=== PATIENT | female | born 1995 | race Caucasian/White ===

== ENCOUNTER → 2020-07-16 | Outpatient (CLI) | payer BC ==
[~2020-07-16] MED LIST: BACTRIM DS TAB1 EACH PO; IBUPROFEN800 MG PO; KEFLEX CAP 500500 MG PO
== END ==
LOC: KOH-I 11:18
DX: M79.672 Pain in left foot (principal); S92.512A Displaced fracture of proximal phalanx of left lesser toe(s), initial encounter for closed fracture; X58.XXXA Exposure to other specified factors, initial encounter
CPT/HCPCS: 73630

== ENCOUNTER 2021-02-18 18:28 | Emergency (ER) | payer OTHER ==
[2021-02-19] MEDS ORDERED: PHENERGAN 25 MG25 M1 PO (02:14)
[2021-02-19] MEDS ORDERED: AUGMENTIN 875-1 EACH PO (02:14)
[2021-02-19] MEDS ORDERED: BONJESTA ER 201 EACH PO (02:14)
[2021-02-20] MEDS ORDERED: PHENERGAN 12.12.5 M1 PO (14:20)
== END 2021-02-19 02:37 | disposition home or self-care (01) ==
LOC: ER1 18:28
DX: O23.41 Unspecified infection of urinary tract in pregnancy, first trimester (principal); O99.331 Smoking (tobacco) complicating pregnancy, first trimester; F17.210 Nicotine dependence, cigarettes, uncomplicated; Z3A.11 11 weeks gestation of pregnancy; Z20.822 Contact with and (suspected) exposure to COVID-19
CPT/HCPCS: 71045; 81001; 84703; 87086; 99284; U0002

== ENCOUNTER 2021-02-20 11:47 | Emergency (ER) | payer OTHER ==
[~2021-02-20 11:47] MED LIST changes: +AUGMENTIN 875-1 EACH PO; +BONJESTA ER 201 EACH PO; +PHENERGAN 25 MG25 M1 PO
[2021-02-20 13:17] LABS: HEMOGLOBIN 12.8 gm/dl (12.3-15.3); RED BLOOD COUNT 4.33 M/UL (4.00-5.10); WHITE BLOOD COUNT 6.1 K/UL (4.5-11.0)
[2021-02-20 13:37] LABS: BUN/CREATININE RATIO 6 (0-10)
[2021-02-20] MEDS ORDERED: PHENERGAN 12.12.5 M1 PO (14:20)
== END 2021-02-20 14:30 | disposition home or self-care (01) ==
LOC: ER1 11:47
PROVIDERS: Nurse Practitioner
DX: N39.0 Urinary tract infection, site not specified (principal); J45.909 Unspecified asthma, uncomplicated; F17.210 Nicotine dependence, cigarettes, uncomplicated
CPT/HCPCS: 80053; 81001; 85025; 87086; 96374; 96375; 99284; J0696

== ENCOUNTER 2021-08-05 11:26 | Emergency (ER) | payer OTHER ==
[~2021-08-05 11:26] MED LIST changes: +PHENERGAN 12.12.5 M1 PO
[2021-08-05 13:11] LABS: HEMOGLOBIN 12.3 gm/dl (12.3-15.3); RED BLOOD COUNT 4.11 M/UL (4.00-5.10); WHITE BLOOD COUNT 9.5 K/UL (4.5-11.0)
[2021-08-05 13:19] LABS: BUN/CREATININE RATIO 12 (0-10)
== END 2021-08-05 13:27 | disposition left against medical advice (07) ==
LOC: ER1 11:26
PROVIDERS: Physician Assistant
DX: O21.9 Vomiting of pregnancy, unspecified (principal); O99.891 Other specified diseases and conditions complicating pregnancy; O99.333 Smoking (tobacco) complicating pregnancy, third trimester; F17.210 Nicotine dependence, cigarettes, uncomplicated; Z3A.36 36 weeks gestation of pregnancy
CPT/HCPCS: 80053; 81001; 83690; 83735; 85025; 99283

== ENCOUNTER 2021-08-12 17:13 | Outpatient (CLI) | payer OTHER ==
[2021-08-12 20:01] LABS: BUN/CREATININE RATIO 16 (0-10)
== END 2021-08-12 22:13 | disposition home or self-care (01) ==
LOC: GENOP 17:13
PROVIDERS: Obstetrics & Gynecology
DX: O99.891 Other specified diseases and conditions complicating pregnancy (principal); R51.9 Headache, unspecified; R42 Dizziness and giddiness; R19.7 Diarrhea, unspecified; Z3A.36 36 weeks gestation of pregnancy
CPT/HCPCS: 80053; 82570; 83615; 84156; 84550; 85025; 96360

== ENCOUNTER 2021-08-27 05:07 | Inpatient (IN) | payer OTHER ==
[~2021-08-27] VITALS: Wt 59.0 kg
[2021-08-27] MEDS ORDERED: PRENATAL VITAM1 EAC6 PO (06:33)
[2021-08-27] MEDS ORDERED: ZOLOFT25 MG PO (06:33)
[2021-08-27] MEDS ORDERED: PROVENTIL HFA6.7 GM INH (06:34)
[2021-08-27] MEDS ORDERED: ZYRTEC10 MG PO (06:34)
[2021-08-27 06:37] LABS: HEMOGLOBIN 12.2 gm/dl (12.3-15.3); RED BLOOD COUNT 4.06 M/UL (4.00-5.10); WHITE BLOOD COUNT 10.8 K/UL (4.5-11.0)
[2021-08-27] MEDS ORDERED: COLACE 100MG C100 MG PO (07:39)
[2021-08-27] MEDS ORDERED: IBUPROFEN600 MG PO (07:39)
[2021-08-27] MEDS ORDERED: HYDROCODON-ACE1 EAC6 PO (07:39)
[2021-08-28 03:23] LABS: HEMOGLOBIN 10.8 gm/dl (12.3-15.3)
== END 2021-08-30 16:43 | disposition home or self-care (01) | DRG 788 ==
LOC: OB 05:07
PROVIDERS: ADMIT Obstetrics & Gynecology
PROC: 10D00Z1 Extraction of Products of Conception, Low, Open Approach (ICD-10-PCS; principal; 2021-08-27 07:30)
DX: O13.4 Gestational [pregnancy-induced] hypertension without significant proteinuria, complicating childbirth (principal); O36.63X0 Maternal care for excessive fetal growth, third trimester, not applicable or unspecified; O99.324 Drug use complicating childbirth; O99.344 Other mental disorders complicating childbirth; F15.90 Other stimulant use, unspecified, uncomplicated; O99.334 Smoking (tobacco) complicating childbirth; F17.200 Nicotine dependence, unspecified, uncomplicated; F32.A Depression, unspecified; O99.52 Diseases of the respiratory system complicating childbirth; J45.909 Unspecified asthma, uncomplicated; F41.1 Generalized anxiety disorder; O34.211 Maternal care for low transverse scar from previous cesarean delivery; Z3A.38 38 weeks gestation of pregnancy; Z37.0 Single live birth; Z28.310 Unvaccinated for COVID-19; Z82.49 Family history of ischemic heart disease and other diseases of the circulatory system; Z83.3 Family history of diabetes mellitus; Z80.1 Family history of malignant neoplasm of trachea, bronchus and lung; Z82.0 Family history of epilepsy and other diseases of the nervous system
CPT/HCPCS: 36415; 80307; 81001; 82800; 85014; 85018; 85025; C9113; J0690; J1650; J1885; J2274; J2370; J2590; J3010